=== PATIENT | female | born 1955 | race Caucasian/White ===

== ENCOUNTER 2020-10-04 15:29 | Emergency (ER) | payer OTHER, SELFPAY ==
[2020-10-04 15:32] VITALS: BP 150/79; PULSE 88; RESP 20; TEMP 36.6; O2SAT 99
--- NOTE | 2020-10-04 15:32 | DI.RAD.S_ITS ---
PROCEDURE: XR WRIST RT MIN 3V INDICATIONS: fall, rt wrist deformity TECHNIQUE: 3 views of the wrist were acquired. COMPARISON: None. FINDINGS: Bones: No dislocations. No suspicious bony lesions. There is an impacted dorsally angulated intra-articular Colles'fracture involving the distal radius, and carpal fractures are not identified. The ulnar-styloid process tip likely is fractured transversely, but not significantly displaced. Scaphoid view: No trauma to the scaphoid is found but the scaphoid view was not obtained. Soft tissues: No suspicious soft tissue calcifications. IMPRESSION: Distal radius Colles'fracture, tip and dorsal angulation of the distal radius articular surface fracture. Dictated by: Tonny Ibrahim M.D. on 10/04/2020 at 16:16 Approved by: Tonny Ibrahim M.D. on 10/04/2020 at 16:17
[2020-10-04] MEDS: propofoL 200 MG/20 ML VIAL 115 MG IV (16:10)
[2020-10-04 16:13] VITALS: BP 167/80; PULSE 75; RESP 12; O2SAT 100
[2020-10-04 16:25] VITALS: BP 130/71; PULSE 75; RESP 12; O2SAT 98
--- NOTE | 2020-10-04 16:25 | PC.NURSE ---
Right ulnar reduction by Dr Floyd, 100mg Propofol administered by Dr Floyd. Patient tolerated well. RT/RN/DR at bedside. Splint and sling applied.
[2020-10-04 16:26] VITALS: BP 130/67; PULSE 76; RESP 10; O2SAT 98
--- NOTE | 2020-10-04 16:28 | RT ---
Procedural sedation note: I assisted ER team with procedural sedation and managed the airway. Pt did not need any PPV. Baseline ETCO2-35mmhg, RR 20 ETCO2 during procedure: 32mmhg, RR 18. Pt spont woke up. No complciations. Left pt with Nurse Frausto.
[2020-10-04 16:29] VITALS: BP 140/81; PULSE 72; RESP 10; O2SAT 100
--- NOTE | 2020-10-04 16:39 | DI.RAD.S_ITS ---
PROCEDURE: XR WRIST RT 2V INDICATIONS: post reduction TECHNIQUE: 2 views of the wrist were acquired. COMPARISON: [facility], CR, XR WRIST RT MIN 3V, 10/04/2020, 15:34. FINDINGS: Bones: No previously on identified fractures or dislocations. No suspicious bony lesions. There has been an improvement in malalignment from earlier today after closed reduction and splinting. The distal radius and distal ulna fracture planes are less well the visualized due to overlying splint material. Scaphoid view: Not obtained but the scaphoid has not shown evidence of trauma. Soft tissues: No suspicious soft tissue calcifications. IMPRESSION: Improved anatomic alignment after closed reduction of distal radius and ulna fractures. Dictated by: Tonny Ibrahim M.D. on 10/04/2020 at 17:05 Approved by: Tonny Ibrahim M.D. on 10/04/2020 at 17:06
--- NOTE | 2020-10-04 17:22 | ED_ITS ---
HPI - Trauma General Chief Complaint: Extremity Injury, Upper Stated Complaint: Thinks Broke Rt Wrist Time Seen by Provider: 10/04/20 15:35 Source: patient Mode of arrival: Ambulatory Limitations: no limitations History of Present Illness HPI narrative: 65-year-old female nonsmoker with noncontributory medical history presents with her for evaluation of an injured wrist. Just prior to her arrival she got her feet caught up and fell backwards onto an outstretched wrist and felt a snap. She now has significant pain in her right wrist, worse with any range of motion and improves with rest. She denies any numbness, tingling or weakness. She denies any other injury such as elbow, shoulder nor head, neck or back pain. She denies any exposure to persons with known COVID. She is right-hand dominant MD complaint: fall and injury Onset (ago): minute(s) Loss of Consciousness: no Location - Extremities: Right: wrist Severity: severe Context: fall Associated symptoms: denies other symptoms Related Data Previous Rx's Medication Instructions Recorded hydrocodone-acetaminophen 1 tab PO Q4-6H PRN #20 tab 10/04/20 ondansetron 4 mg PO TID-QID PRN #10 tab 10/04/20 Review of Systems Constitutional Constitutional: Denies chills, Denies fatigue, Denies fever(s), Denies frequent falls, Denies lethargy and Denies weakness Eyes Eyes: Denies change in vision, Denies eye discharge, Denies irritation and Denies loss of vision ENT Ears, Nose, Mouth, and Throat: Denies change in voice, Denies dizziness, Denies neck pain, Denies sore throat and Denies throat swelling Cardiovascular Cardiovascular: Denies chest pain, Denies irregular heart rhythm, Denies lightheadedness, Denies palpitations, Denies dyspnea, Denies dyspnea on exertion and Denies orthopnea Respiratory Respiratory: Denies cough, Denies dyspnea, Denies dyspnea on exertion and Denies wheezing Gastrointestinal Gastrointestinal: Denies abdominal pain, Denies change in bowel habits, Denies diarrhea, Denies nausea and Denies vomiting Musculoskeletal Musculoskeletal: Reports deformity, Reports arthralgias, Reports joint swelling, Reports limited range of motion, Denies neck pain and Denies numbness Integumentary/Breasts Skin/Breast: Denies pruritus, Denies erythema, Denies rash and Denies wounds Neurologic Neurologic: Denies behavioral changes, Denies confusion, Denies dizziness, Denies frequent falls, Denies loss of vision, Denies numbness and Denies weakness Psychiatric Psychiatric: Denies anxiety, Denies behavioral changes, Denies confusion, Denies depression, Denies homicidal ideation and Denies suicidal ideation Endocrine Endocrine: Denies fatigue, Denies flushing and Denies palpitations Hematologic/Lymphatic Hematologic/Lymphatic: Denies easy bruising Allergic/Immunologic Allergic/Immunologic: Denies urticaria, Denies throat swelling and Denies wheezing Patient History Smoking Status: Never smoker alcohol intake frequency: 0-2 drinks per day Exam Narrative Exam Narrative: GEN: AOx3 and in mild distress, GCS 15 HEAD: Atraumatic NECK: No midline pain, no pain with range of motion, no step-offs or crepitance EYES: Pupils are equal, round, and reactive to light and accommodation. Extraoccular muscles are intact bilaterally. There is no subconjunctival hemor rhage or exudate. CHEST: Lungs are clear to auscultation bilaterally and free of wheezes, rales, or rhonchi. Heart rate is regular rhythm, there are no murmurs, clicks, rubs, or gallops. There is no chest wall tenderness. ABD: Abdomen is soft and nontender. There is no guarding or rebound. Bowel sounds are normal in all 4 quadrants. There is no mass or organomegaly. EXT: Obvious deformity to right wrist, closed and isolated. Sensation intact, cap refill less than 2 seconds. No pain with palpation of elbow or shoulder SKIN: Warm, pink, and dry. No erythema or rash Initial Vital Signs Initial Vital Signs: Vital Signs Temperature 97.9 F 10/04/20 15:32 Pulse Rate 88 10/04/20 15:32 Respiratory Rate 20 10/04/20 15:32 Blood Pressure 150/79 H 10/04/20 15:32 Pulse Oximetry 99 10/04/20 15:32 Procedures Orthopedic Fracture Reduction Fracture #1: Time Out Performed: Yes Side: right Fracture Reduction Location: radius Analgesia: procedural sedation Technique: direct manipulation and traction/counter-traction Post Reduction X-rays Demonstrate: anatomical reduction Post-reduction neuro exam: intact Post-reduction vascular exam: intact Splint Applied: Yes Patient Tolerated Procedure: Well Orthopedic Splinting/Casting Injury #1: Side: right Upper Extremity Injury Location: wrist Upper Extremity Immobilizer: sling/shoulder immobilizer Post splinting neuro exam: intact Post splinting vascular exam: intact Placed by: Provider Procedural Sedation Consent signed: Yes Time out performed: Yes Indication: fracture/dislocation reduction ASA Class: I Mallampati Airway Classification: Class I Preparation: cable assembler and swager applied, pulse oximeter, capnometry used, supplemental O2 applied, suction/airway equipment at bedside and IV secured IV Propofol dose (mg): 100 Intraservice time/total sedation time (min): 10 ED Sedation Level: Moderate (Concious) Patient Tolerated Procedure: Well Complications: none Course Orders Ordered: Discontinued Medications Propofol (Propofol 200 Mg/20 Ml Vial) 115 mg 1 mg/kg (115 mg) IV NOW ONE Stop: 10/04/20 16:04 Last Admin: 10/04/20 16:10 Dose: 100 mg Documented by: VILMA Consultations Consultation #1: Discuss with on-call orthopedics. Happy with plan for sugar- tong, sling, follow up Vital Signs Vital signs: Vital Signs - 8 hr 10/04/20 15:32 10/04/20 16:13 10/04/20 16:25 Temperature 97.9 F Pulse Rate 88 75 75 Respiratory Rate 20 12 12 Blood Pressure 150/79 H 130/71 Blood Pressure [Left Arm] 167/80 H Pulse Oximetry 99 100 98 10/04/20 16:26 10/04/20 16:29 Temperature Pulse Rate 76 72 Respiratory Rate 10 L 10 L Blood Pressure 130/67 140/81 Blood Pressure [Left Arm] Pulse Oximetry 98 100 MDM - Trauma Lab Data Labs: Point of Care Testing Test Results Not applicable Imaging Data Extremity x-ray #1: Radiologist's Impression: Mateo Quiles 65 F [address] [id number] ReportSigned Patient: Mateo QuilesR#: [id number]: 1955ct:[id number]/Sex: 65 / FDate of Service: 10/04/20Loc: EDAccession Number: [id number] Procedure: XR wrist RT min 3V Ordering Provider: Pb Floyd D.O. PROCEDURE: XR WRIST RT MIN 3V INDICATIONS: fall, rt wrist deformity TECHNIQUE: 3 views of the wrist were acquired. COMPARISON: None. FINDINGS: Bones: No dislocations. No suspicious bony lesions. There is an impacted dorsally angulated intra-articular Colles'fracture involving the distal radius, and carpal fractures are not identified. The ulnar-styloid process tip likely is fractured transversely, but not significantly displaced. Scaphoid view: No trauma to the scaphoid is found but the scaphoid view was not obtained. Soft tissues: No suspicious soft tissue calcifications. IMPRESSION: Distal radius Colles'fracture, tip and dorsal angulation of the distal radius articular surface fracture. Dictated by: Tonny Ibrahim M.D. on 10/04/2020 at 16:16 Approved by: Tonny Ibrahim M.D. on 10/04/2020 at 16:17 Extremity x-ray #2: Radiologist's Impression: Mateo Quiles 65 F [address] [id number] ReportSigned Patient: Albertina Quilesyanetalondra JMR#: [id number]: 5Acct:[id number]/Sex: 65 / FDate of Service: 10/04/20Loc: EDAccession Number: [id number] Procedure: XR wrist RT 2V Ordering Provider: Pb Floyd D.O. PROCEDURE: XR WRIST RT 2V INDICATIONS: post reduction TECHNIQUE: 2 views of the wrist were acquired. COMPARISON: [facility], , XR WRIST RT MIN 3V, 10/04/2020, 15:34. FINDINGS: Bones: No previously on identified fractures or dislocations. No suspicious bony lesions. There has been an improvement in malalignment from earlier today after closed reduction and splinting. The distal radius and distal ulna fracture planes are less well the visualized due to overlying splint material. Scaphoid view: Not obtained but the scaphoid has not shown evidence of trauma. Soft tissues: No suspicious soft tissue calcifications. IMPRESSION: Improved anatomic alignment after closed reduction of distal radius and ulna fractures. Dictated by: Tonny Ibrahim M.D. on 10/04/2020 at 17:05 Approved by: Tonny Ibrahim M.D. on 10/04/2020 at 17:06 Discharge Plan Departure Patient Disposition: Home Clinical Impression: Fracture of wrist Qualifiers: Encounter type: initial encounter Fracture type: closed Laterality: right Qualified Code(s): S62.101A - Fracture of unspecified carpal bone, right wrist, initial encounter for closed fracture Instructions: DI for Distal Radius Fracture Activity Restrictions/Additional Instructions: *You have been diagnosed with [fall with distal radius fracture] *What to do: *Take medications as directed *Follow up with your primary care provider in 2-3 days, call for an appointment. Let them know you were seen in the Emergency Department and that we ask that you be seen in follow up *Return to ER if you should have any new, worsening or concerning symptoms Prescriptions: New hydrocodone-acetaminophen 5-325 mg tablet 1 tab PO Q4-6H PRN (Reason: pain) Qty: 20 RF: 0 ondansetron 4 mg tablet,disintegrating 4 mg PO TID-QID PRN (Reason: nausea and vomiting) Qty: 10 RF: 0 Referrals: Padmini Chavarria ARNP [Primary Care Provider] - Eloy Frarell MD [Physician] -
[2020-10-04 17:39] VITALS: BP 148/84; PULSE 75; RESP 16; O2SAT 98
== END 2020-10-04 17:48 | disposition home or self-care (01) ==
PROVIDERS: Emergency Provider Emergency Medicine; PCP Nurse Practitioner Family
DX: S62.101A Fracture of unspecified carpal bone, right wrist, initial encounter for closed fracture (principal); W19.XXXA Unspecified fall, initial encounter
CPT/HCPCS: 25605; 29125; 73100; 73110; 94770; 99152; 99284; 99285; J2704

== ENCOUNTER → 2021-01-18 12:17 | Outpatient (CLI) | payer OTHER, SELFPAY ==
[2021-01-18 13:06] LABS: Hematocrit 38.6 % (36-46); Hemoglobin 12.6 g/dL (12.0-16.0); Mean Corpuscular HGB Conc 32.5 % (30-36); Mean Corpuscular Hemoglobin 27.9 PG (26-34); Mean Corpuscular Volume 85.7 fL (80-100); Platelet Count 272 X10^3/uL (150-400); White Blood Cell Count 7.7 X10^3/uL (4.5-11.0)
[2021-01-18 13:33] LABS: Alanine Aminotransferase 30 IU/L (<35); Albumin 4.2 g/dL (3.5-5.0); Albumin Globulin Ratio 1.5 (1.0-2.8); Alkaline Phosphatase 90 U/L (38-126); Aspartate Aminotransferase 29 IU/L (14-36); BUN Creatinine Ratio 16.3 (6-22); Bilirubin Total 0.4 mg/dL (0.2-1.3); Blood Urea Nitrogen 13 mg/dL (7-17); Calcium 10.2 mg/dL (8.4-10.2); Carbon Dioxide 26 mmol/L (22-32); Chloride 104 mmol/L (98-107); Cholesterol 214 mg/dL (140-199); Estimated Glomerular Filt Rate > 60.0 mL/min (>60); Globulin 2.8 g/dL (1.7-4.1); Glucose 96 mg/dL (80-110); HDL Cholesterol 84 mg/dL (40-60); HEMOLYSIS < 15 (0-50); LDL Cholesterol Calculated 114 mg/dL (<100); Potassium 3.9 mmol/L (3.4-5.1); Sodium 138 mmol/L (137-145); Triglycerides 81 mg/dL (35-150)
== END ==
PROVIDERS: PCP Nurse Practitioner Family; Referring Provider Nurse Practitioner Family; Visit Provider Nurse Practitioner Family
DX: Z00.00 Encounter for general adult medical examination without abnormal findings (principal); I10 Essential (primary) hypertension; Z13.6 Encounter for screening for cardiovascular disorders
CPT/HCPCS: 36415; 80053; 80061; 85027